=== PATIENT | female | born 1970 | race Caucasian/White ===

== ENCOUNTER 2016-10-08 13:52 | Emergency (ER) | payer OTHER ==
[2016-10-08 15:11] VITALS: BP 143/84
== END 2016-10-08 15:11 | disposition home or self-care (01) ==
LOC: ED 13:52
DX: H66.91 Otitis media, unspecified, right ear (principal); J02.9 Acute pharyngitis, unspecified; H11.002 Unspecified pterygium of left eye; I10 Essential (primary) hypertension
CPT/HCPCS: J0696; J1100